=== PATIENT | male | born 1950 | race Caucasian/White ===

== ENCOUNTER 2016-10-05 18:29 | Emergency (ER) | payer MEDICARE, MEDICAID ==
[~2016-10-05] VITALS: Ht 180.3 cm; Wt 58.0 kg
[2016-10-05 21:21] VITALS: BP 137/79
== END 2016-10-05 21:23 | disposition home or self-care (01) ==
LOC: ED 21:17
DX: S20.211A Contusion of right front wall of thorax, initial encounter (principal); W19.XXXA Unspecified fall, initial encounter; Y93.89 Activity, other specified; Y92.410 Unspecified street and highway as the place of occurrence of the external cause; Y99.9 Unspecified external cause status
CPT/HCPCS: 99284

== ENCOUNTER 2017-09-12 19:09 | Emergency (ER) | payer MEDICARE, MEDICAID ==
[~2017-09-12] VITALS: Ht 180.3 cm; Wt 57.1 kg
[2017-09-12 19:14] VITALS: BP 138/66
[2017-09-12] MEDS ORDERED: DEXAMETHASONE 4 MG TABLET PO ONE (20:04)
[2017-09-12] MEDS ORDERED: DEXAMETHASONE 4 MG TABLET ONE (20:13)
== END 2017-09-12 21:41 | disposition home or self-care (01) ==
LOC: ED 21:35
DX: J02.8 Acute pharyngitis due to other specified organisms (principal); B97.89 Other viral agents as the cause of diseases classified elsewhere; N63.0 Unspecified lump in unspecified breast; J44.9 Chronic obstructive pulmonary disease, unspecified
CPT/HCPCS: 76642; 99284

== ENCOUNTER 2019-11-16 13:01 | Emergency (ER) | payer MEDICARE, MEDICAID ==
[~2019-11-16] VITALS: Ht 180.3 cm; Wt 57.1 kg
[2019-11-16 13:09] VITALS: BP 144/79
--- NOTE | 2019-11-16 13:24 | NUR ---
Note jigar in EDM - 11/16/19 at 1327 by DARLENE patient arrives with a multitude of chief complaints. 1. he hit his head 36 hours ago on a beam and has some wounds to forehead and nose 2. he has a rash growing on his left thigh 3. he has diarrhea gowned and rails up.
--- NOTE | 2019-11-16 13:27 | NUR ---
patient arrives with chief complaints rash left thigh and hit head on a beam 36 hours ago. rails up.
== END 2019-11-16 14:21 | disposition home or self-care (01) ==
LOC: ED 13:46
DX: S00.81XA Abrasion of other part of head, initial encounter (principal); L01.01 Non-bullous impetigo; L74.0 Miliaria rubra; I80.8 Phlebitis and thrombophlebitis of other sites; J44.9 Chronic obstructive pulmonary disease, unspecified; X58.XXXA Exposure to other specified factors, initial encounter; Y93.89 Activity, other specified; Y92.89 Other specified places as the place of occurrence of the external cause; Y99.8 Other external cause status
CPT/HCPCS: 99283

== ENCOUNTER 2019-11-17 13:04 | Emergency (ER) | payer MEDICARE, MEDICAID ==
[~2019-11-17] VITALS: Ht 180.3 cm; Wt 56.5 kg
--- NOTE | 2019-11-17 13:22 | NUR ---
NA X1
--- NOTE | 2019-11-17 13:29 | NUR ---
NA X2
[2019-11-17 13:35] VITALS: BP 137/74
--- NOTE | 2019-11-17 14:03 | NUR ---
BRODIE DOOLEY AT BEDSIDE FOR ASSESSMENT.
== END 2019-11-17 14:49 | disposition home or self-care (01) ==
LOC: ED 14:17
DX: L74.0 Miliaria rubra (principal); J44.9 Chronic obstructive pulmonary disease, unspecified
CPT/HCPCS: 99283

== ENCOUNTER 2020-01-28 19:09 | Emergency (ER) | payer MEDICARE, MEDICAID ==
[~2020-01-28] VITALS: Ht 177.8 cm; Wt 54.5 kg
[2020-01-28 19:18] VITALS: BP 147/62
--- NOTE | 2020-01-28 19:49 | NUR ---
PT AMBULATED TO ROOM 15 C/O LEFT SIDED CHEST PAIN X2 WEEKS THAT IS RELIEVED BY HEATING PAD. PT STATES PAIN IS NORMALLY WORSE IN THE MORNINGS. DENIES SOB, COUGH, N/V. MONITORS IN PLACE, LABS DRAWN.
[2020-01-28 20:12] LABS: BASOPHILS # (AUTO) 0.04 x10^3/uL (0-0.1); BASOPHILS % (AUTO) 0 % (0-1); EOSINOPHILS # (AUTO) 0.21 x10^3/uL (0-0.4); EOSINOPHILS % (AUTO) 2 % (1-7); LYMPHOCYTES # (AUTO) 0.93 x10^3/uL (1-3.4); LYMPHOCYTES % (AUTO) 8 % (22-44); MD NO; MEAN CORPUSCULAR HEMOGLOBIN 30.5 pg (27.5-34.5); MEAN CORPUSCULAR HGB CONC 32.7 g/dL (33.2-36.2); MEAN CORPUSCULAR VOLUME 93.1 fL (81-97); MEAN PLATELET VOLUME 6.5 fL (7.4-10.4); MONOCYTES # (AUTO) 0.53 x10^3/uL (0.2-0.8); MONOCYTES % (AUTO) 4 % (2-9); NEUTROPHILS # (AUTO) 10.34 x10^3/uL (1.8-6.8); NEUTROPHILS % (AUTO) 86 % (42-75); PLATELET COUNT 712 x10^3/uL (130-400); RED BLOOD COUNT 5.54 x10^6/uL (4.38-5.82); RED CELL DISTRIBUTION WIDTH 15.7 % (9.4-14.8)
[2020-01-28 20:25] LABS: ALANINE AMINOTRANSFERASE 26 U/L (12-78); ALBUMIN 4.3 g/dL (3.4-5.0); ANION GAP 4 mmol/L (5-15); CALCIUM 9.3 mg/dL (8.5-10.1); CHLORIDE 105 mmol/L (98-107); CREATININE 1.06 mg/dL (0.7-1.3)
[2020-01-28 20:27] LABS: ALKALINE PHOSPHATASE 52 U/L (45-117); BILIRUBIN,TOTAL 0.7 mg/dL (0.2-1.0); TOTAL PROTEIN 7.5 g/dL (6.4-8.2); TROPONIN I < 0.015 ng/mL (0.000-0.045)
== END 2020-01-28 21:31 | disposition home or self-care (01) ==
LOC: ED 20:18
DX: R09.1 Pleurisy (principal); R07.89 Other chest pain; R10.9 Unspecified abdominal pain; J44.9 Chronic obstructive pulmonary disease, unspecified; Z87.891 Personal history of nicotine dependence
CPT/HCPCS: 36415; 71045; 80053; 83880; 84484; 85025; 85379; 93005; 99285

== ENCOUNTER 2020-04-25 00:36 | Emergency (ER) | payer MEDICARE, MEDICAID ==
[~2020-04-25] VITALS: Ht 180.3 cm; Wt 56.5 kg
[2020-04-25 00:40] VITALS: BP 138/84
== END 2020-04-25 02:30 | disposition home or self-care (01) ==
LOC: ED 02:25
DX: S20.212A Contusion of left front wall of thorax, initial encounter (principal); J44.9 Chronic obstructive pulmonary disease, unspecified; I48.92 Unspecified atrial flutter; I44.30 Unspecified atrioventricular block; W19.XXXA Unspecified fall, initial encounter; Y93.89 Activity, other specified; Y92.098 Other place in other non-institutional residence as the place of occurrence of the external cause; Y99.8 Other external cause status
CPT/HCPCS: 93005; 99283

== ENCOUNTER 2020-08-19 14:01 | Emergency (ER) | payer MEDICARE, MEDICAID ==
[~2020-08-19] VITALS: Ht 180.3 cm; Wt 57.2 kg
[2020-08-19 14:07] VITALS: BP 151/84
[2020-08-19 15:29] LABS: MICROSCOPIC NOT IND
== END 2020-08-19 16:26 | disposition home or self-care (01) ==
LOC: ED 15:55
DX: K40.91 Unilateral inguinal hernia, without obstruction or gangrene, recurrent (principal); J43.9 Emphysema, unspecified; Z87.891 Personal history of nicotine dependence
CPT/HCPCS: 81003; 87491; 87591; 99283

== ENCOUNTER 2020-09-09 11:13 | Emergency (ER) | payer MEDICARE, MEDICAID ==
[~2020-09-09] VITALS: Ht 180.3 cm; Wt 58.4 kg
[2020-09-09 11:18] VITALS: BP 144/71
--- NOTE | 2020-09-09 11:27 | NUR ---
URINE ORDERED IN TRIAGE AND CUP PROVIDED TO PATIENT.
--- NOTE | 2020-09-09 11:45 | NUR ---
URINE COLLECTED AND SENT TO LAB.
--- NOTE | 2020-09-09 12:06 | NUR ---
PT AMBULATORY TO ROOM FROM LOBBY.
[2020-09-09 12:08] LABS: MICROSCOPIC NOT IND
--- NOTE | 2020-09-09 12:08 | NUR ---
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
--- NOTE | 2020-09-09 12:20 | NUR ---
ASSIST PA WITH EXAM.
== END 2020-09-09 12:54 | disposition home or self-care (01) ==
LOC: ED 12:39
DX: B37.42 Candidal balanitis (principal); R30.0 Dysuria; R30.9 Painful micturition, unspecified; J44.9 Chronic obstructive pulmonary disease, unspecified; Z87.891 Personal history of nicotine dependence
CPT/HCPCS: 81003; 87491; 87591; 99283

== ENCOUNTER 2020-10-24 00:35 | Emergency (ER) | payer MEDICAID, MEDICARE ==
[~2020-10-24] VITALS: Ht 180.3 cm; Wt 58.0 kg
[2020-10-24 00:41] VITALS: BP 148/73
--- NOTE | 2020-10-24 01:04 | NUR ---
D/C INSTRUCTIONS RV'WD WITH PT BY ER PA. PT AMBULATED OUT OF ED WITHOUT DIFFICULTY.
== END 2020-10-24 01:20 | disposition home or self-care (01) ==
LOC: ED 01:10
DX: L98.9 Disorder of the skin and subcutaneous tissue, unspecified (principal); L30.4 Erythema intertrigo; J44.9 Chronic obstructive pulmonary disease, unspecified
CPT/HCPCS: 99281

== ENCOUNTER 2020-10-29 23:23 | Emergency (ER) | payer MEDICARE ==
[~2020-10-29] VITALS: Ht 180.3 cm; Wt 54.0 kg
[2020-10-29 23:26] VITALS: BP 144/86
== END 2020-10-30 01:25 | disposition home or self-care (01) ==
LOC: ED 10-30 01:18
DX: H60.12 Cellulitis of left external ear (principal); J44.9 Chronic obstructive pulmonary disease, unspecified
CPT/HCPCS: 99281

== ENCOUNTER 2021-02-19 10:13 | Emergency (ER) | payer MEDICARE, MEDICAID ==
[~2021-02-19] VITALS: Ht 180.3 cm; Wt 58.0 kg
[2021-02-19 10:19] VITALS: BP 175/95
[2021-02-19] MEDS ORDERED: DIPH,PERTUSS(ACELL),TET VAC/PF 0.5 ML IM-VACC ONE ×2 (10:30→10:42)
== END 2021-02-19 10:51 | disposition home or self-care (01) ==
LOC: ED 10:45
DX: L03.113 Cellulitis of right upper limb (principal); J44.9 Chronic obstructive pulmonary disease, unspecified
CPT/HCPCS: 90471; 90715